=== PATIENT | female | born 1955 | race Caucasian/White ===

== ENCOUNTER 2024-10-15 09:03 | Outpatient (CLI) | payer MEDICARE, OTHER | END 2024-10-15 09:04 | disposition home or self-care (01) | LOC: CSHSLEEP 09:03 | PROVIDERS: ATTEND Family Medicine | DX: G47.33 Obstructive sleep apnea (adult) (pediatric) (principal); G47.61 Periodic limb movement disorder | CPT/HCPCS: 95810 ==

== ENCOUNTER 2024-12-02 08:25 | Outpatient (CLI) | payer MEDICARE, OTHER | END 2024-12-02 08:26 | disposition home or self-care (01) | LOC: CSHSLEEP 08:25 | PROVIDERS: ATTEND Family Medicine | DX: G47.33 Obstructive sleep apnea (adult) (pediatric) (principal); G47.61 Periodic limb movement disorder | CPT/HCPCS: 95811 ==